=== PATIENT | male | born 1980 | race Caucasian/White ===

== ENCOUNTER 2021-01-06 15:47 | Emergency (ER) | payer OTHER ==
[~2021-01-06] VITALS: Ht 167.6 cm; Wt 81.0 kg
[2021-01-06 15:56] VITALS: BP 111/60
== END 2021-01-06 16:09 | disposition left against medical advice (07) ==
LOC: ER 15:48
DX: R42 Dizziness and giddiness (principal); R25.1 Tremor, unspecified; R61 Generalized hyperhidrosis; R11.0 Nausea; R19.7 Diarrhea, unspecified
CPT/HCPCS: 93005; 99283